=== PATIENT | female | born 1980 | race Caucasian/White ===

== ENCOUNTER 2016-09-04 15:08 | Emergency (ER) | payer OTHER ==
[2016-09-04 15:16] VITALS: BMI 26.6
[2016-09-04] MEDS ORDERED: NS 250 ML IV 250 ML IV ONE (17:18)
--- NOTE | 2016-09-04 17:31 | DR.URIAD ---
HPI - Time Seen Time seen: 17:25 - PCP Primary Care Physician: NFD - Complaint Chief Complaint:: PT C/O CCC., N/V, FEELING WEAK ".. PT STATES " I THINK I HAVE THE FLU". Self Treatment fo Chief Complaint: TYLENOL SINUSPT... PT IS OUT OF HER CYMBALTA , XANAX, WELLBUTRIN.. PT MISSED HER APPT AND SHE THINKS SHE MAY BE HAVING DT'S,, - Source History Provided: Patient - Mode of Arrival Mode of Arrival: Ambulatory - Timing Onset of Chief Complaint: 08/21/16 - Quality Shortness of Breath: Mild PMH - PMH Past Medical History: Yes Past Medical History Comment: IVS, AND ONLY ONE KIDNEY... Past Surgical History: No - Family History History of Family Medical Conditions: No - Social History Does patient currently use any type of tobacco product: No Have you used tobacco products in the last 12 months: No Type of Tobacco Use: None Does any household member use tobacco: No Alcohol Use: None Do you use any recreational Drugs:: No Lives With: Family Lives Where: Home - infectious screening In the last 2 months have you had wt loss of >10#?: NO Have you had fever, night sweats or hemotysis?: No Have you traveled outside the country in the last 6 months?: No Isolation: Standard ROS - Review of Systems Constitutional: No Symptoms Reported Eyes: No Symptoms Reported ENTM: No Symptoms Reported Respiratoy: No Symptoms Reported Cardiovascular: No Symptoms Reported Gastrointestinal/Abdominal: Abdominal Pain, Nausea Genitourinary: No Symptoms Reported Neurological: No Symptoms Reported Musculoskeletal: No Symptoms Reported Integumentary: No Symptoms Reported Hematologic/Lymphatic: No Symptoms Reported Endocrine: No Symptoms Reported Psychiatric: No Symptoms Reported All Other Systems: Reviewed and Negative PE - Vital Signs Vitals: Temperature 98.6 F Pulse Rate 81 Respiratory Rate 20 Blood Pressure 137/74 O2 Sat by Pulse Oximetry 10 - General Limitations: No Limitations General Appearance: Alert, In No Apparent Distress - Head Head Exam: Normal Inspection, Atraumatic - Eyes Eye exam: Normal Appearance, PERRL, EOMI - ENT ENT Exam: Normal Exam External Ear Exam: Normal External Inspection TM/Canal Exam: Bilateral Normal Nasal Speculum Exam: Bilateral Normal Mouth Exam: Normal Inspection Throat Exam: Normal Inspection - Neck Neck Exam: Normal Inspection - Chest Chest Inspection: Normal Inspection - Respiratory Respiratory Exam: Normal Lung Sounds Bilat Respiratory Exam: Bilateral Clear to Auscultation - Cardiovascular Cardiovascular Exam: Regular Rate, Normal Rhythm - Abdominal Exam Abdominal Exam: Normal Inspection, Dimnished Bowel Sounds Abdominal Tenderness: negative: RUQ, RLQ, LUQ, LLQ, Epigastrium, Suprapubic, Diffuse, Mild, Moderate, Severe, Other - Extremeties Extremities Exam: Normal Inspection - Back Back Exam: Normal Inspection, Full ROM - Neurologic Neurological Exam: Alert, Oriented X3, CN II-XII Intact - Psychiatric Psychiatric Exam: Normal Affect, Normal Mood - Skin Skin Exam: Warm, Dry, Intact Course - Reevaluation 1st: Improved ROR - Labs Reviewed Result Diagrams: 09/04/16 17:45 09/04/16 17:45 Laboratory: WBC 8.4 X10^3/uL (3.6-10.0) 09/04/16 17:45 RBC 5.03 X10^6/uL (3.5-5.4) 09/04/16 17:45 Hgb 13.3 g/dL (12.0-16.0) 09/04/16 17:45 Hct 40.1 % (36.0-47.0) 09/04/16 17:45 MCV 79.8 fL (80.0-100.0) L 09/04/16 17:45 MCH 26.5 pg (27.0-34.0) L 09/04/16 17:45 MCHC 33.2 g/dL (33.0-35.0) 09/04/16 17:45 RDW 15.5 % (11.6-16.5) 09/04/16 17:45 Plt Count 242 X10^3/uL (150.0-450.0) 09/04/16 17:45 MPV 8.9 fL (7.4-11.0) 09/04/16 17:45 Neut % 67.0 % (42.0-75.0) 09/04/16 17:45 Lymph % 22.8 % (21.0-51.0) 09/04/16 17:45 [place] % 8.3 % (0.0-13.0) 09/04/16 17:45 Eos % 1.3 % (0.9-2.9) 09/04/16 17:45 Baso % 0.6 % (0.2-1.0) 09/04/16 17:45 Neut # 5.6 x10^3/uL (2.2-4.8) H 09/04/16 17:45 Lymph # 1.9 X10^3/uL (1.3-2.9) 09/04/16 17:45 [place] # 0.7 x10^3/uL (0.3-0.8) 09/04/16 17:45 Eos # 0.1 x10^3/uL (0.0-0.2) 09/04/16 17:45 Baso # 0.0 X10^3/uL (0.0-0.1) 09/04/16 17:45 Absolute Nucleated RBC 0.1 /100WBC 09/04/16 17:45 Sodium 141 mmol/L (136-145) 09/04/16 17:45 Corrected Sodium 141 mmol/L (136-145) 09/04/16 17:45 Potassium 2.5 mmol/L (3.5-5.1) L* 09/04/16 17:45 Chloride 100 mmol/L (98-107) 09/04/16 17:45 Carbon Dioxide 25.7 mmol/L (21-32) 09/04/16 17:45 BUN 4 mg/dL (7-18) L 09/04/16 17:45 Creatinine 1.13 mg/dL (0.55-1.02) H 09/04/16 17:45 Est GFR (MDRD) Af Amer > 60 (>60) 09/04/16 17:45 Est GFR (MDRD) Non-Af 58 (>60) L 09/04/16 17:45 Glucose 117 mg/dL (65-99) H 09/04/16 17:45 Calcium 8.4 mg/dL (8.5-10.1) L 09/04/16 17:45 Corrected Calcium TNP 09/04/16 17:45 Total Bilirubin 0.30 mg/dL (0.2-1.0) 09/04/16 17:45 AST 18 Units/L (15-37) 09/04/16 17:45 ALT 27 Units/L (12-78) 09/04/16 17:45 Alkaline Phosphatase 68 Units/L (46-116) 09/04/16 17:45 C-Reactive Protein 9.70 mg/L (0-3.0) H 09/04/16 17:45 Total Protein 7.9 g/dL (6.4-8.2) 09/04/16 17:45 Albumin 3.9 g/dL (3.4-5.0) 09/04/16 17:45 Globulin 4.0 g/dL (2.5-4.5) 09/04/16 17:45 Albumin/Globulin Ratio 1.0 Ratio (1.1-2.1) L 09/04/16 17:45 H. pylori IgG Antibody Negative (NEGATIVE) 09/04/16 17:45 - XRAY XRAY Interpreted by: Radiologist (Acute Abdomen: The trachea is midline. The cardiac silhouette is unremarkable. The lungs are clear without focal infiltrate or effusion. The bony thorax is unremarkable. Flat plate and upright evaluation of the abdomen demonstrates a normal bowel gas pattern. No pathological soft tissue mass or calcification can be observed. The bony structures are grossly intact. Impression: No acute cardiopulmonary disease. No evidence for acute abdominal pathology identified.) - Diagnosis Discharge Problem: Hypokalemia Vomiting Qualifiers: Vomiting type: unspecified Vomiting Intractability: unspecified Nausea presence : with nausea Qualified Code(s): R11.2 - Nausea with vomiting, unspecified - Discharge Plan Condition: Stable - Follow ups/Referrals Follow ups/Referrals: NFD,None [Primary Care Provider] - 3 days - Instructions
[2016-09-04 17:51] LABS: BASOPHILS % (AUTO) 0.6 % (0.2-1.0); EOSINOPHILS # (AUTO) 0.1 x10^3/uL (0.0-0.2); EOSINOPHILS % (AUTO) 1.3 % (0.9-2.9); HEMATOCRIT 40.1 % (36.0-47.0); HEMOGLOBIN 13.3 g/dL (12.0-16.0); LYMPHOCYTES # (AUTO) 1.9 X10^3/uL (1.3-2.9); LYMPHOCYTES % (AUTO) 22.8 % (21.0-51.0); MEAN CORPUSCULAR HEMOGLOBIN 26.5 pg (27.0-34.0); MEAN CORPUSCULAR HGB CONC 33.2 g/dL (33.0-35.0); MEAN CORPUSCULAR VOLUME 79.8 fL (80.0-100.0); MEAN PLATELET VOLUME 8.9 fL (7.4-11.0); MONOCYTES # (AUTO) 0.7 x10^3/uL (0.3-0.8); MONOCYTES % (AUTO) 8.3 % (0.0-13.0); NEUTROPHILS # (AUTO) 5.6 x10^3/uL (2.2-4.8); PLATELET COUNT 242 X10^3/uL (150.0-450.0); RED BLOOD COUNT 5.03 X10^6/uL (3.5-5.4); RED CELL DISTRIBUTION WIDTH 15.5 % (11.6-16.5); WHITE BLOOD COUNT 8.4 X10^3/uL (3.6-10.0)
[2016-09-04 18:06] LABS: BLOOD UREA NITROGEN 4 mg/dL (7-18); CALCIUM 8.4 mg/dL (8.5-10.1); CARBON DIOXIDE 25.7 mmol/L (21-32); CHLORIDE 100 mmol/L (98-107); COR NA(FOR HYPERGLY) 141 mmol/L (136-145); CREATININE 1.13 mg/dL (0.55-1.02); GLUCOSE 117 mg/dL (65-99); SODIUM 141 mmol/L (136-145); eGFR BLACK RACES > 60 (>60); eGFR NON BLACK RACES 58 (>60)
[2016-09-04 18:10] LABS: ALANINE AMINOTRANSFERASE 27 Units/L (12-78); ALBUMIN 3.9 g/dL (3.4-5.0); ALKALINE PHOSPHATASE 68 Units/L (46-116); ASPARTATE AMINO TRANSFERASE 18 Units/L (15-37); TOTAL PROTEIN 7.9 g/dL (6.4-8.2)
[2016-09-04] MEDS ORDERED: K-LYTE EFFERVESCENT PO ONE (18:15)
--- NOTE | 2016-09-04 18:23 | RAD ---
HISTORY: Abdominal pain Study: Acute abdominal series Comparison: None Findings: The trachea is midline. The cardiac silhouette is unremarkable. The lungs are clear without focal infiltrate or effusion. The bony thorax is unremarkable. Flat plate and upright evaluation of the abdomen demonstrates a normal bowel gas pattern. No pathol ogical soft tissue mass or calcification can be observed. The bony structures are grossly intact. IMPRESSION: 1. No acute cardiopulmonary disease. 2. No evidence for acute abdominal pathology identified. Reported By:
[2016-09-04] MEDS ORDERED: K-DUR TAB 20 MEQ PO ONE ×2 (18:49→18:55)
[2016-09-04 20:28] VITALS: BP 122/78
== END 2016-09-04 20:27 | disposition home or self-care (01) ==
LOC: ER 15:29
DX: E87.6 Hypokalemia (principal); R11.2 Nausea with vomiting, unspecified
CPT/HCPCS: 36415; 74022; 80053; 85025; 86140; 86677; 99283; A4222